=== PATIENT | male | born 1935 | race Caucasian/White ===

== ENCOUNTER 2016-03-29 14:23 | Inpatient (IN) | payer OTHER, MEDICARE ==
[~2016-03-29] VITALS: Ht 165.1 cm; Wt 33.5 kg
[~2016-03-29 14:23] MED LIST: AMARYL2 MG PO; ATORVASTATIN CA80 MG PO; CILOSTAZOL50 MG PO; FINASTERIDE5 MG PO; FLOMAX0.4 MG PO; IMDUR30 MG PO; KRILL OIL 5001 EACH PO; LEVOXYL50 MCG PO; LOPRESSOR25 MG PO; LOW DOSE ASPIRI81 M1 PO; MONOKET10 MG PO; NITROGLYCERIN0.4 MG SL; NORVASC10 MG PO; PREVACID30 MG PO; PRINIVIL10 MG PO; TRAMADOL HCL50 MG PO
[2016-03-29 15:05] LABS: HEMATOCRIT 34.4 % (38.0-50.0); MCH 24.3 PG (29.0-34.0); MCHC 31.1 G/DL (30.0-36.0); MCV 78.2 FL (86-99); MEAN PLAT.VOLUME 9.6 uM^3 (9.0-12.4); PLATELET COUNT 337 K/uL (156-360); RBC DIS.WIDTH-CV 18.6 % (11.8-14.6); RBC DIS.WIDTH-SD 50.1 % (39-53); WHITE BLOOD COUNT 9.4 K/uL (4.1-10.2)
[2016-03-29 15:15] LABS: CHLORIDE 111 mEq/L (99-109); POTASSIUM 3.9 mEq/L (3.7-5.4); SODIUM 141 mEq/L (136-147)
[2016-03-29 15:16] LABS: GLUCOSE 129 mg/dL (70-99)
[2016-03-29 15:18] LABS: ANION GAP 12 MEQ/L (2-14)
[2016-03-29 15:20] LABS: GFR ESTIMATE (CALCULATED) > 59 mL/min/
[2016-03-29 15:21] LABS: UREA NITROGEN (BUN) 13 mg/dL (9-23)
[2016-03-29 15:25] LABS: TROP-I INTERPRETATION NEGATIVE; TROPONIN-I 0.04 ng/mL (0.0-0.30)
[2016-03-29] MEDS ORDERED: IMDUR120 MG PO (18:40)
[2016-03-29] MEDS ORDERED: LOPRESSOR100 M1 PO (18:41)
[2016-03-29] MEDS ORDERED: PLAVIX75 MG PO (18:42)
[2016-03-29] MEDS ORDERED: LASIX20 MG PO (18:42)
[2016-03-29] MEDS ORDERED: KLOR-CON M1010 MEQ PO (18:43)
[2016-03-29 20:05] LABS: INFLUENZA A VIRAL ANTIGEN NEGATIVE; INFLUENZA B VIRAL ANTIGEN NEGATIVE
[2016-03-29 21:49] LABS: TROP-I INTERPRETATION NEGATIVE; TROPONIN-I 0.03 ng/mL (0.0-0.30)
[2016-03-30 00:06] LABS: POINT-OF-CARE METER ID UU14162513
[2016-03-30 00:20] VITALS: BP 132/71
[2016-03-30 03:31] LABS: TROP-I INTERPRETATION NEGATIVE; TROPONIN-I 0.05 ng/mL (0.0-0.30)
[2016-03-30 04:21] VITALS: BP 95/54
[2016-03-30 06:55] LABS: HEMATOCRIT 30.6 % (38.0-50.0); MCH 24.2 PG (29.0-34.0); MCHC 30.7 G/DL (30.0-36.0); MCV 78.9 FL (86-99); MEAN PLAT.VOLUME 10.5 uM^3 (9.0-12.4); PLATELET COUNT 279 K/uL (156-360); RBC DIS.WIDTH-CV 18.5 % (11.8-14.6); RED BLOOD COUNT 3.88 M/uL (4.00-5.50); WHITE BLOOD COUNT 9.5 K/uL (4.1-10.2)
[2016-03-30 07:15] LABS: ANION GAP 10 MEQ/L (2-14); CHLORIDE 110 MEQ/L (99-109); GFR ESTIMATE (CALCULATED) > 59 mL/min/; GLUCOSE 112 mg/dL (70-99); SAMPLE HEMOLYSIS CHECK 0; SAMPLE ICTERIC CHECK 0; SAMPLE LIPEMIA CHECK 0; SODIUM 142 MEQ/L (136-147); UREA NITROGEN (BUN) 14 mg/dL (9-23)
[2016-03-30 07:16] LABS: POINT-OF-CARE METER ID UU14162513
[2016-03-30 07:23] LABS: BASOPHIL COUNT 0.1 K/uL (0-0.1); EOSINOPHIL (%) 0.7 % (0-5); EOSINOPHIL COUNT 0.1 K/uL (0-0.3); IMMATURE GRANULOCYTE (%) 0.3 % (0.0-0.7); LYMPHOCYTE COUNT 1.4 K/uL (1.0-2.8); MONOCYTE (%) 12.3 % (3-12); MONOCYTE COUNT 1.2 K/uL (0-0.8); NEUTROPHIL (%) 71.3 % (45-76); NEUTROPHIL COUNT 6.8 K/uL (1.8-6.4)
[2016-03-30 08:45] LABS: IRON 23 MCG/DL (35-150)
[2016-03-30 08:55] VITALS: BP 91/52
[2016-03-30] MEDS ORDERED: FLOMAX0.4 MG PO (11:18)
[2016-03-30 12:49] LABS: POINT-OF-CARE METER ID UU13113700
[2016-03-30 13:16] VITALS: BP 95/52
[2016-03-30 16:31] VITALS: BP 97/75
[2016-03-30 17:54] LABS: POINT-OF-CARE METER ID UU13113700
[2016-03-30 20:00] VITALS: BP 76/45
[2016-03-30 21:27] LABS: POINT-OF-CARE METER ID UU14162513
[2016-03-31] VITALS (11 sets, daily range): BP systolic 71–99; BP diastolic 48–68
[2016-03-31 07:09] LABS: HEMATOCRIT 28.1 % (38.0-50.0); MCH 24.1 PG (29.0-34.0); MCHC 30.6 G/DL (30.0-36.0); MCV 78.7 FL (86-99); MEAN PLAT.VOLUME 9.8 uM^3 (9.0-12.4); PLATELET COUNT 265 K/uL (156-360); RBC DIS.WIDTH-CV 18.4 % (11.8-14.6); RBC DIS.WIDTH-SD 52.6 % (39-53); RED BLOOD COUNT 3.57 M/uL (4.00-5.50); WHITE BLOOD COUNT 8.1 K/uL (4.1-10.2)
[2016-03-31 12:48] LABS: POINT-OF-CARE METER ID UU13113700
[2016-03-31 16:43] LABS: BASE EXCESS -8.6 mEq/L (-3 to +3); BICARBONATE 16.5 mEq/L (22-26); CARBOXY HGB 1.7 % (0-5); COMMENTS - BLOOD GASES A+C+; DEVICE NC; METHEMOGLOBIN 1.4 % (0-1.5); O2 FLOW 6 L/MIN; PCO2 32 mm Hg (35-45); PO2 100 mm Hg (80-100); SITE LR; TOTAL RESP RATE 8 resp/min; pH 7.32 (7.35-7.45)
[2016-03-31 16:49] LABS: HEMATOCRIT 31.8 % (38.0-50.0); MCV 78.1 FL (86-99)
[2016-03-31 17:55] LABS: INTER. NORMALIZED RATIO 1.1; PROTHROMBIN TIME 11.5 (9.2-11.2); PTT 34.1 (25-32)
[2016-03-31 22:44] LABS: METH RESISTANT S AUREUS PCR NEGATIVE (NEGATIVE)
[2016-03-31 22:46] LABS: PROBE CHECK PASS; SPECIMEN PROCESSING CONTROL PASS
[2016-04-01] VITALS: BP 81/49
[2016-04-01 10:40] LABS: INTERNAL CONTROL VALID? YES
== END 2016-04-01 04:35 | DRG 306 ==
LOC: EME 14:23 → EDOF 20:10 → 5WEST 20:10 → EDOF 20:10 → 5WEST 22:18 → 4WEST 03-30 18:34 → 5WEST 03-30 18:34 → 4EAST 03-31 18:01 → 4WEST 03-31 20:16 → 4EAST 03-31 20:16 → 4WEST 03-31 20:33
PROVIDERS: Emergency Medicine; Hospitalist; Internal Medicine; Internal Medicine Pulmonary Disease; Nurse Practitioner Adult Health
DX: I35.0 Nonrheumatic aortic (valve) stenosis (principal); J18.9 Pneumonia, unspecified organism; I26.99 Other pulmonary embolism without acute cor pulmonale; I50.23 Acute on chronic systolic (congestive) heart failure; I42.9 Cardiomyopathy, unspecified; J90 Pleural effusion, not elsewhere classified; I65.22 Occlusion and stenosis of left carotid artery; R55 Syncope and collapse; I25.10 Atherosclerotic heart disease of native coronary artery without angina pectoris; D64.9 Anemia, unspecified; R06.00 Dyspnea, unspecified; E03.9 Hypothyroidism, unspecified; I25.5 Ischemic cardiomyopathy; I95.9 Hypotension, unspecified; E78.5 Hyperlipidemia, unspecified; E11.9 Type 2 diabetes mellitus without complications; N40.0 Benign prostatic hyperplasia without lower urinary tract symptoms; I70.90 Unspecified atherosclerosis; I44.1 Atrioventricular block, second degree; I11.0 Hypertensive heart disease with heart failure; Z66 Do not resuscitate; Z95.1 Presence of aortocoronary bypass graft; Z87.891 Personal history of nicotine dependence; Z86.73 Personal history of transient ischemic attack (TIA), and cerebral infarction without residual deficits; I46.9 Cardiac arrest, cause unspecified
CPT/HCPCS: 36600; 70496; 70498; 71010; 71020; 80048; 82272; 82728; 82803; 82948; 83540; 83605; 83880; 84466; 84484; 85014; 85018; 85025; 85027; 85610; 85730; 87040; 87070; 87205; 87449; 87502; 87641; 93005; 93306; 94640; 94640 76; 94799; 99202; 99281; 99285; G0378; J1644; J1756; J1815; J1940; J1956; J2405; J7030; J7050